=== PATIENT | female | born 1980 | race Caucasian/White ===

== ENCOUNTER 2017-05-02 08:25 | Inpatient (IN) | payer OTHER ==
[~2017-05-02] VITALS: Ht 152.4 cm; Wt 66.2 kg
[2017-05-02] MEDS ORDERED: PREN1TAB80 PO (09:04)
[2017-05-02 09:08] VITALS: BP 108/60
[2017-05-02] MEDS ORDERED: RINGERS SOLUTION,LACTATED 1,000 ML IV PRN (10:02)
[2017-05-02] MEDS ORDERED: RINGERS SOLUTION,LACTATED 1,000 ML IV SCH (10:02)
[2017-05-02] MEDS ORDERED: OXYTOCIN 30 UNITS/LACT RINGERS 500 ML IV PRN (10:02)
[2017-05-02] MEDS ORDERED: OXYTOCIN 30 UNITS/LACT RINGERS 500 ML IV ONE (10:02)
[2017-05-02] MEDS ORDERED: AMPICILLIN SODIUM 2 GM/NS 100 ML IV ONE ×2 (10:08→10:15)
[2017-05-02] MEDS ORDERED: CITRIC ACID/SODIUM CITRATE 30 ML SOLUTION UDCUP PO PRN (10:15)
[2017-05-02] MEDS ORDERED: METOCLOPRAMIDE HCL 5 MG/ML 2 ML VIAL IVP PRN (10:15)
[2017-05-02] MEDS ORDERED: LIDOCAINE HCL/PF 1% 30 ML VIAL INJ PRN (10:15)
[2017-05-02] MEDS ORDERED: AMPICILLIN SODIUM 1 GM/NS 50 ML IV SCH (10:15)
[2017-05-02] MEDS ORDERED: FentaNYL CITRATE-PF 100 MCG/2 ML VIAL IVP PRN (10:15)
[2017-05-02] MEDS ORDERED: BETAMETHASONE SOLUSPAN 6 MG/ML 5 ML VIAL IM SCH (10:15)
[2017-05-02 10:34] LABS: BASOPHILS % (AUTO) 0.4 % (0.0-2.0); EOSINOPHILS % (AUTO) 0.8 % (1.0-6.0); HEMATOCRIT 37.7 % (36-46); HEMOGLOBIN 13.1 g/dL (12.0-16.0); LYMPHOCYTES # (AUTO) 2.1 K/uL (1.0-4.8); LYMPHOCYTES % (AUTO) 21.2 % (22.0-44.0); MEAN CORPUSCULAR HEMOGLOBIN 32.5 pg (26.0-34.0); MEAN CORPUSCULAR HGB CONC 34.7 G/dL (31.0-37.0); MEAN CORPUSCULAR VOLUME 94 fL (80-100); MONOCYTES # (AUTO) 0.4 K/uL (0.1-1.0); MONOCYTES % (AUTO) 4.1 % (2.0-9.0); NEUTROPHILS # (AUTO) 7.2 K/uL (1.8-7.7); NEUTROPHILS % (AUTO) 73.5 % (40.0-70.0); RED BLOOD CELL COUNT(AUTO) 4.02 MIL/uL (4.00-5.20); RED CELL DISTRIBUTION WIDTH 13.9 % (11.5-14.5); WHITE BLOOD COUNT (AUTO) 9.8 K/uL (4.5-11.0)
[2017-05-02] MEDS ORDERED: LIDOCAINE HCL 2%/EPI 1:200,000/PF 10 ML VIAL ONE (10:42)
[2017-05-02] MEDS ORDERED: FentaNYL/BUPIV 0.125%/NS/PF 200 ML ED ONE (10:43)
[2017-05-02] MEDS ORDERED: FentaNYL/BUPIV 0.125%/NS/PF 200 ML ED PRN (11:12)
[2017-05-02] MEDS ORDERED: PROMETHAZINE HCL 25 MG/ML VIAL IM PRN (11:15)
[2017-05-02] MEDS ORDERED: DiphenhydrAMINE HCL 50 MG/ML VIAL IVP PRN (11:15)
[2017-05-02] MEDS ORDERED: ONDANSETRON HCL 4 MG/2 ML VIAL IVP PRN (11:15)
[2017-05-02] MEDS ORDERED: NALBUPHINE HCL 10 MG/ML VIAL IVP PRN (11:15)
[2017-05-02] MEDS ORDERED: MISOPROSTOL 100 MCG TABLET ONE (11:48)
[2017-05-02] MEDS ORDERED: MISOPROSTOL 100 MCG TABLET PO ONE (12:00)
[2017-05-02] MEDS ORDERED: OxyCODONE HCL/ACETAMINOPHEN 5-325 MG TABLET PO PRN ×2 (15:45)
[2017-05-02] MEDS ORDERED: LANOLIN 7 GM OINTMENT TP PRN (15:45)
[2017-05-02] MEDS ORDERED: BENZOCAINE 20%/MENTHOL 56 GM SPRAY CANISTER TP PRN (15:45)
[2017-05-02] MEDS ORDERED: GLYCERIN/WITCH HAZEL LEAF 40 PADS JAR TP PRN (15:45)
[2017-05-02] MEDS: IBUPROFEN 600 MG TABLET PO PRN (17:12)
[2017-05-02] MEDS ORDERED: OXYGEN THERAPY IH SCH (20:00)
[2017-05-02] MEDS ORDERED: MAGNESIUM HYDROXIDE SUSPENSION 30 ML UDCUP PO SCH (21:00)
[2017-05-03] MEDS: IBUPROFEN 600 MG TABLET PO PRN (03:21)
[2017-05-03 07:34] LABS: BASOPHILS % (AUTO) 0.2 % (0.0-2.0); EOSINOPHILS % (AUTO) 0.2 % (1.0-6.0); HEMATOCRIT 34.1 % (36-46); HEMOGLOBIN 11.6 g/dL (12.0-16.0); LYMPHOCYTES # (AUTO) 1.8 K/uL (1.0-4.8); LYMPHOCYTES % (AUTO) 7.3 % (22.0-44.0); MEAN CORPUSCULAR HEMOGLOBIN 32.7 pg (26.0-34.0); MEAN CORPUSCULAR VOLUME 96 fL (80-100); MONOCYTES # (AUTO) 1.1 K/uL (0.1-1.0); MONOCYTES % (AUTO) 4.6 % (2.0-9.0); RED BLOOD CELL COUNT(AUTO) 3.55 MIL/uL (4.00-5.20); RED CELL DISTRIBUTION WIDTH 13.9 % (11.5-14.5)
[2017-05-03 07:57] LABS: NEUTROPHILS % (AUTO) 87.7 % (40.0-70.0)
[2017-05-03] MEDS ORDERED: DSS100 PO (10:22)
[2017-05-03] MEDS ORDERED: IBUP-2070 PO (10:22)
== END 2017-05-03 12:30 | disposition home or self-care (01) | DRG 775 ==
LOC: OBSVTOIN 08:25 → 4S 08:25
PROVIDERS: ADMIT Obstetrics & Gynecology; ATTEND Obstetrics & Gynecology
PROC: 10E0XZZ Delivery of Products of Conception, External Approach (ICD-10-PCS; principal; 2017-05-02)
PROC: 0HQ9XZZ Repair Perineum Skin, External Approach (ICD-10-PCS; 2017-05-02)
PROC: 3E0S3CZ (ICD-10-PCS; 2017-05-02)
PROC: 00HU33Z Insertion of Infusion Device into Spinal Canal, Percutaneous Approach (ICD-10-PCS; 2017-05-02)
DX: O42.013 Preterm premature rupture of membranes, onset of labor within 24 hours of rupture, third trimester (principal); O60.14X0 Preterm labor third trimester with preterm delivery third trimester, not applicable or unspecified; Z37.0 Single live birth; O09.523 Supervision of elderly multigravida, third trimester; Z3A.36 36 weeks gestation of pregnancy; O70.0 First degree perineal laceration during delivery
CPT/HCPCS: 86850; 86900; 86901; J0290; J0702; J2590; J3490